=== PATIENT | female | born 2000 | race Caucasian/White ===

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

== ENCOUNTER 2020-07-09 00:05 | Emergency (ER) | payer MEDICAID ==
[~2020-07-09] VITALS: Ht 167.6 cm; Wt 65.8 kg
[2020-07-09 00:20] VITALS: BP 109/71
--- NOTE | 2020-07-09 00:20 | NUR ---
TO TENT #5 AMBULATORY
--- NOTE | 2020-07-09 01:00 | NUR ---
PATIENT CALLED TO BE SEEN BY ERMD NO RESPONSE. PATIENT LEFT WITHOUT BEING SEEN BY DR. EGAN. NO FURTHER CARE PROVIDED FOR PATIENT.
--- NOTE | 2020-07-09 01:05 | NUR ---
CALLED FOR THE SECOND TIME NO RESPONSE
--- NOTE | 2020-07-09 01:10 | NUR ---
CALLED FOR THE THIRD TIME, NO RESPONSE
== END 2020-07-09 01:00 | disposition left against medical advice (07) ==
LOC: MED 00:05
DX: M79.10 Myalgia, unspecified site (principal); R50.9 Fever, unspecified; Z53.21 Procedure and treatment not carried out due to patient leaving prior to being seen by health care provider

== ENCOUNTER 2021-09-14 21:26 | Emergency (ER) | payer MEDICAID ==
[~2021-09-14] VITALS: Ht 167.6 cm; Wt 68.0 kg
[2021-09-14 21:40] VITALS: BP 129/75
--- NOTE | 2021-09-14 21:40 | NUR ---
TO BED AMBULATORY
--- NOTE | 2021-09-14 22:27 | NUR ---
Dr. Apple examining patient.
[2021-09-14] MEDS ORDERED: ACETAMINOPHEN 325 MG TAB PO ONE (22:30)
[2021-09-14] MEDS ORDERED: IBUPROFEN 400 MG TAB PO ONE (22:30)
[2021-09-14] MEDS ORDERED: IBUP-2218 PO (23:06)
[2021-09-14] MEDS ORDERED: ONDA-188 SL (23:06)
--- NOTE | 2021-09-14 23:15 | NUR ---
PATIENT CLEARED FOR DISHCARGE AT THIS TIME. ADVISED TO FOLLOW UP WITH PCP AND RETURN IF CONDITION WORSENS. NO OTHER COMPLAINTS OR CONECRN AT THIS TIME FOLLOWING DISCHARGE TEACHING
[2021-09-14 23:16] VITALS: BP 119/57
== END 2021-09-14 23:15 | disposition home or self-care (01) ==
LOC: MED 21:26
DX: S06.0X0A Concussion without loss of consciousness, initial encounter (principal); M79.18 Myalgia, other site; Z79.1 Long term (current) use of non-steroidal anti-inflammatories (NSAID); Z79.899 Other long term (current) drug therapy
CPT/HCPCS: 81002; 81025; 99283

== ENCOUNTER 2021-11-04 20:04 | Emergency (ER) | payer MEDICAID ==
[~2021-11-04] VITALS: Ht 167.6 cm; Wt 70.3 kg
[~2021-11-04 20:04] MED LIST: IBUP-2218 PO; ONDA-188 SL
[2021-11-04 20:15] VITALS: BP 116/72
--- NOTE | 2021-11-04 20:18 | NUR ---
TO LOBBY A/W BED AMBULATORY
--- NOTE | 2021-11-04 20:28 | NUR ---
PT TAKEN TO BED 3
--- NOTE | 2021-11-04 20:46 | NUR ---
Dr. Oropeza examining patient.
[2021-11-04] MEDS ORDERED: ACET-10509 PO (20:55)
[2021-11-04] MEDS ORDERED: IBUP-2213 PO (20:55)
[2021-11-04] MEDS ORDERED: METO-486 PO (20:55)
[2021-11-04] MEDS ORDERED: IBUPROFEN 600 MG TAB PO ONE (21:05)
[2021-11-04] MEDS ORDERED: METOCLOPRAMIDE 10 MG TAB PO ONE (21:05)
[2021-11-04 21:25] VITALS: BP 116/72
--- NOTE | 2021-11-04 21:25 | NUR ---
Patient discharged with v/s stable. Written and verbal after care instructions given and explained. Patient alert, oriented and verbalized understanding of instructions. Ambulatory with steady gait. All questions addressed prior to discharge. ID band removed. Patient advised to follow up with PMD. Rx of Ibuprofen , Reglan and Tylenol given. Patient educated on indication of medication including possible reaction and side effects. Opportunity to ask questions provided and answered.
== END 2021-11-04 21:25 | disposition home or self-care (01) ==
LOC: MED 20:04
DX: S06.0X0A Concussion without loss of consciousness, initial encounter (principal); Z79.899 Other long term (current) drug therapy; V89.2XXA Person injured in unspecified motor-vehicle accident, traffic, initial encounter; Y93.89 Activity, other specified; Y92.89 Other specified places as the place of occurrence of the external cause; Y99.8 Other external cause status
CPT/HCPCS: 81025; 99283; J8597